=== PATIENT | female | born 1990 | race Caucasian/White ===

== ENCOUNTER → 2020-04-21 09:06 | Outpatient (CLI) | payer OTHER, SELFPAY ==
--- NOTE | ~2020-04-21 | MR_ITS ---
EXAMINATION: MR hip RT wo con DATE: 04/21/2020 09:55 INDICATION: Right hip pain TECHNIQUE: Magnetic resonance imaging (MRI) of the right hip was performed without intravenous contr ast. Sequences included full-field axial PD-weighted FS FSE and T1-weighted FSE, coronal of the pelvi s with PD-weighted FS FSE, small field of view of the right hip with axial PD-weighted FS FSE, sagit troy PD-weighted FS FSE and coronal PD weighted FS FSE. Additional radial T1-weighted FGR oriented ort hogonal to the acetabular rim were obtained for evaluation of the labrum. COMPARISON: None FINDINGS: Bones/labrum/cartilage: Alignment is normal. No fracture, avascular necrosis or pathologic marrow replacing process. There i s a linear fluid signal intensity tear at the chondral labral junction of the superolateral acetabula r labrum which extends from the 1:00 position anteriorly to the 10:30 position posteriorly. There is additional more irregular increased signal consistent with degenerative tearing of the anterior labru m. Articular cartilage is normal. Femoral head/neck morphology appears normal. There is possible ante rior acetabular over coverage at the right hip although this would be best evaluated with a standard AP radiograph of the pelvis. Fluid: Symmetric physiologic amount of fluid within both hip joints. Soft tissues: Normal and symmetric muscle bulk and signal in the pelvis and visualized proximal thighs. The iliopso as, gluteal and proximal hamstring tendons are normal. Limited evaluation of visceral organs of the p demetrius is unremarkable. No pathologically enlarged pelvic/inguinal lymphadenopathy. IMPRESSION: 1. Right acetabular labral tear. Reviewed, dictated and finalized at location A. [employer]
== END ==
DX: S73.191A Other sprain of right hip, initial encounter (principal); X58.XXXA Exposure to other specified factors, initial encounter
CPT/HCPCS: 73721